=== PATIENT | male | born 1950 | race Caucasian/White ===

== ENCOUNTER 2017-10-10 06:34 | Day surgery (SDC) | payer MEDICARE, MEDICAID ==
[~2017-10-10] VITALS: Ht 175.3 cm; Wt 74.8 kg
[~2017-10-10 06:34] MED LIST: ASPI-1159 PO; OMEP20TA2 PO
[2017-10-10] MEDS ORDERED: CLOP75TA16 PO (07:10)
[2017-10-10] MEDS ORDERED: ATOR10TA PO (07:10)
[2017-10-10] MEDS ORDERED: TRIA1TAB94 PO (07:10)
[2017-10-10] MEDS ORDERED: IODIXANOL 320MG/ML 100 ML BOTTLE IV ONE (07:33)
[2017-10-10] MEDS ORDERED: LIDOCAINE HCL/PF 1% 10 MG/ML 30ML VIAL ONE (07:34)
[2017-10-10] MEDS ORDERED: MIDAZOLAM HCL 2 MG/2 ML VIAL ONE (08:24)
[2017-10-10] MEDS ORDERED: FENTANYL CITRATE/PF 50MCG/ML 2ML VIAL ONE (08:25)
[2017-10-10] MEDS ORDERED: ONDANSETRON HCL 4MG/2ML VIAL IV PRN (09:30)
[2017-10-10] MEDS ORDERED: ACETAMINOPHEN 325MG TABLET PO PRN (09:30)
[2017-10-10] MEDS ORDERED: ATROPINE SULFATE 1MG/10ML SYR IV PRN (09:30)
[2017-10-10] MEDS ORDERED: NICARDIPINE 100MCG/ML 10ML VIAL (CATH LAB) IV ONE (10:36)
[2017-10-10] MEDS ORDERED: HEPARIN SODIUM 1,000 UNIT/1ML VIAL IV ONE (10:36)
[2017-10-10] MEDS ORDERED: NITROGLYCERIN 50MCG/ML 10ML VIAL (CATH LAB) IV ONE (10:36)
== END 2017-10-10 13:10 | disposition home or self-care (01) ==
LOC: CCL 06:34
PROVIDERS: ATTEND Specialist
DX: I25.118 Atherosclerotic heart disease of native coronary artery with other forms of angina pectoris (principal); E78.4 Other hyperlipidemia; K21.9 Gastro-esophageal reflux disease without esophagitis; I11.9 Hypertensive heart disease without heart failure; Z95.1 Presence of aortocoronary bypass graft; Z79.899 Other long term (current) drug therapy; Z79.82 Long term (current) use of aspirin
CPT/HCPCS: 93458; 99152; C1769; C1893; J1644; J2250; J3010; J3490; Q9967